=== PATIENT | female | born 1950 | race Caucasian/White ===

== ENCOUNTER 2021-03-21 05:56 | Observation (INO) ==
--- NOTE | 2021-03-03 16:33 | PAT Medication Instructions ---
Medication Instructions Date of Service March 03, 2021 Home Medications chlorthalidone 25 mg tablet 12.5 mg PO QAM cholecalciferol (vitamin D3) 50 mcg (2,000 unit) capsule 50 mcg PO QAM ibrutinib 280 mg tablet (Imbruvica) 280 mg PO QAM latanoprost 0.005 % eye drops 1 drp OPHTHALMIC (EYE) DAILY multivitamin 1 tab PO DAILY timolol 0.5 % eye drops 1 drp OPHTHALMIC (EYE) DAILY nitrofurantoin monohydrate/macrocrystals 100 mg capsule 100 mg PO HS Continue as directed latanoprost 0.005 % eye drops 1 drp OPHTHALMIC (EYE) DAILY timolol 0.5 % eye drops 1 drp OPHTHALMIC (EYE) DAILY ASK your prescriber and surgeon ibrutinib 280 mg tablet (Imbruvica) 280 mg PO QAM DO NOT take the morning of surgery chlorthalidone 25 mg tablet 12.5 mg PO QAM cholecalciferol (vitamin D3) 50 mcg (2,000 unit) capsule 50 mcg PO QAM multivitamin 1 tab PO DAILY Take evening before surgery nitrofurantoin monohydrate/macrocrystals 100 mg capsule 100 mg PO HS OTHERWISE NOTHING TO EAT OR DRINK AFTER MIDNIGHT Other Notes If you have any questions please call us at [phone] or [phone] or [phone] or [phone]
--- NOTE | 2021-03-06 15:10 | Anesthesiology Consultation ---
Date of Service March 06, 2021 Assessment & Plan (1) Pre-operative laboratory examination: Chart Review Chart Review: Acceptable Risk for Surgery (pending surgeon ordered PCP clearance and preop Covid testing ) and Patient seen in Pre Admission Testing Awaiting surgeon ordered PCP clearance (will send preop testing for PCP to review) PAT appointment 03/06/2021, patient denies any travel within the past 2 weeks. Patient is vaccinated for Covid. No known Covid infection in the past 90 days. No known Covid positive contacts or Covid related symptoms. Preop Covid testing scheduled 03/19/21= will await results. Educated on importance of self quarantining, social distancing and wearing mask in public both for the patient after Covid testing done History Surgery Operation Date: 03/21/21 11:55 Proposed Procedures p C5-C7 Anterior Cervical Discectomy and Fusion, Spinal Cord Monitoring - Nolan Powell DO Height/Weight Height: 5 ft 1 in Weight: 77.2 kg Allergies Allergy/AdvReac Type Severity Reaction Status Date / Time heparin Allergy swelling/ra Verified 03/03/21 15:48 Medications Home Medications Medication Instructions Recorded Confirmed Last Taken chlorthalidone 25 mg tablet 12.5 mg PO QAM tab 08/22/20 03/03/21 Unknown cholecalciferol (vitamin D3) 50 50 mcg PO QAM 08/22/20 03/03/21 Unknown mcg (2,000 unit) capsule ibrutinib 280 mg tablet (Imbruvica) 280 mg PO QAM 08/22/20 03/03/21 Unknown latanoprost 0.005 % eye drops 1 drp OPHTHALMIC (EYE) DAILY 08/22/20 03/03/21 Unknown multivitamin 1 tab PO DAILY 08/22/20 03/03/21 Unknown timolol 0.5 % eye drops 1 drp OPHTHALMIC (EYE) DAILY 08/22/20 03/03/21 Unknown nitrofurantoin 100 mg PO HS 03/03/21 03/03/21 Unknown monohydrate/macrocrystals 100 mg capsule Past Medical History Medical History Calculus of kidney Hx of and passed on own- no issues x one month Cervical radiculopathy Cervical spinal stenosis Glaucoma Follows routinely with eye doctor HTN (hypertension) Non-Hodgkin lymphoma 12/2015 - on Imbruvica- follows with heme/onc- stable at this time Exercise / Class Metabolic Activity II 4-5 Yardwork/Stairs/Walk up hill (one flight of stairs- no chest pain or SOB ) Past Surgical History Surgical History H/O tubal ligation History of bone marrow biopsy Hx of cataract surgery right and left Hx of hysterectomy Past Anesthesia History No Hx of Anesthesia Complications and No Family Hx of Anesthesia Complications History of PONV No Hx of PONV and No Hx of Motion Sickness Social History Smoking Status: Never smoker Do You Dip or Chew Tobacco: No Hx Alcohol Use: Yes Alcohol type: wine alcohol intake frequency: a few times a month Hx Substance Use: No substance use type: does not use Review of Systems Hx of snoring - witnessed apnea - no hx of sleep study (recommended follow up with PCP at patient discretion) Patient denies chest pain, shortness of breath, dyspnea on exertion, reflux, cough, wheezing, palpitations. No hx of seizures, stroke, MS.. No hx of blood clots or blood transfusions Physical Exam Vital Signs VITALS BP 127/72 P 88 TEMP 97.9 SP02 96% RESP 16 Constitutional no acute distress ENMT Mouth: no TMJ clicking Thyromental Distance: > or= 3.5 Finger Breadths (4.0) Mallampati Class: III Top partial plate Missing bottom molars Neck + limited neck extension (significant ) Respiratory normal respiratory effort; no respiratory distress Auscultation: lungs clear to auscultation bilaterally; no wheezes Cardiovascular Rate/Rhythm: regular rate and regular rhythm Heart Sounds: no murmur Vessels: no carotid bruit Musculoskeletal Spine: no pain with cervical ROM Extremities: extremities normal to inspection Psychiatric Orientation: alert Lab Results Anesthesia Preop Results Results Anesthesia Widget: WBC 13.67 K/uL (4.8-10.8) H 03/06/21 Hgb 13.0 g/dL (12.0-16.0) 03/06/21 Hct 38.2 % (37-47) 03/06/21 Plt 300 K/uL (130-400) 03/06/21 Na 132 mmol/L (136-145) L 03/06/21 K 3.6 mmol/L (3.5-5.1) 03/06/21 Cl 97 mmol/L (98-107) L 03/06/21 CO2 27 mmol/L (21-32) 03/06/21 BUN 12 mg/dl (7-18) 03/06/21 Creat 0.64 mg/dl (0.6-1.2) 03/06/21 Glucose Level 129 mg/dl (70-99) H 03/06/21 PT 10.1 Seconds (9.0-12.0) 03/06/21 PTT 25.6 Seconds (21.0-31.0) 03/06/21 INR 1.0 (0.9-1.1) 03/06/21 Urine Color Yellow 03/06/21 Urine Appearance Clear (Clear) 03/06/21 Urine pH 6.5 (4.5-7.5) 03/06/21 Urine Specific [place] 1.004 (1.000-1.030) 03/06/21 Urine Protein Negative (Negative) 03/06/21 Urine Glucose (UA) Negative (Negative) 03/06/21 Urine Ketones Negative (Negative) 03/06/21 Urine Blood Negative (Negative) 03/06/21 Urine Nitrite Negative (Negative) 03/06/21 Urine Bilirubin Negative (Negative) 03/06/21 Urine Urobilinogen Negative (Negative) 03/06/21 Urine Leukocyte Esterase 1+ (Negative) H 03/06/21 Urine WBC (Auto) 1-5 /hpf (0-5) 03/06/21 Urine RBC (Auto) 0-4 /hpf (0-4) 03/06/21 Urine Hyaline Casts (Auto) 0 /lpf (0-5) 03/06/21 Urine Epithelial Cells (Auto) >30 /lpf (0-5) H 03/06/21 Urine Bacteria (Auto) Negative (Negative) 03/06/21 Blood Type A Positive 03/06/21 Antibody Screen NEGATIVE 03/06/21 Lab Comments: Surgeon's office informed of leukocytosis- pt with hx of lymphoma- will forward labs to PCP for review at clearance appt Testing Electrocardiogram Date: 03/06/21 Findings: + NSR @ (85 bpm) Normal EKG per cardio. Chest X-Ray Date: 03/06/21 Findings: + NAD Cardiac silhouette is upper limits of normal in size. Mild right hemidiaphragmatic elevation. Azygos lobe and fissure. No pneumothorax, pleural effusion, airspace consolidation or overt pulmonary edema. Bones of the chest appear grossly intact. Calcified granuloma of the left lower lobe
[2021-03-21] MEDS ORDERED: ACETAMINOPHEN 500 MG TAB PO SCH (06:00)
[2021-03-21] MEDS ORDERED: LR 15ML/HR IV SCH (06:00)
[2021-03-21] MEDS ORDERED: ceFAZolin 1000MG 1,000 MG/7.5 ML SYR IV SCH (06:00)
[2021-03-21] MEDS ORDERED: GABAPENTIN 300 MG CAP PO SCH (06:00)
[2021-03-21] MEDS ORDERED: CeleBREX 200 MG CAP PO SCH (06:00)
[2021-03-21] MEDS ORDERED: SUGAMMADEX SODIUM 200 MG/2 ML VIAL IV ONE (06:40)
[2021-03-21] MEDS ORDERED: ALBUMIN HUMAN 5% 12.5 GM/250 ML VIAL IV ONE (06:40)
[2021-03-21] MEDS ORDERED: HYDROmorphone INJ 2 MG/ML SYR/VIAL ONE (06:56)
[2021-03-21] MEDS ORDERED: MIDAZOLAM HCL 1 MG/ML 2ML VIAL ONE (06:56)
--- NOTE | 2021-03-21 07:34 | History & Physical Bridge Note ---
Date of Service March 21, 2021 History & Physical Bridge Note I have examined the patient, reviewed the History & Physical and in the interval since the performance of the History & Physical I have noted the following changes of clinical significance: no changes noted
[2021-03-21] MEDS ORDERED: PROMETHAZINE HCL 6.25 MG in SODIUM CHLORIDE 0.9% 50 ML IV PRN (07:39)
[2021-03-21] MEDS ORDERED: HYDROmorphone INJ 1 MG/ML SYRINGE IV PRN ×2 (07:39→11:22)
[2021-03-21] MEDS ORDERED: ATROPINE SULFATE 0.1 MG/ML 10ML SYR IV PRN (07:39)
[2021-03-21] MEDS ORDERED: ONDANSETRON INJ 2 MG/ML 2 ML VIAL IV PRN ×2 (07:39→11:22)
--- NOTE | 2021-03-21 07:44 | History & Physical Report ---
Date of Service March 21, 2021 Assessment & Plan (1) Cervical spinal stenosis: Plan: C5-C7 anterior cervical discectomy and fusion History of Present Illness Chief Complaint: Neck and arm pain Primary Care Provider: Noel Ocampo This is a 71-year-old female presents with chronic persistent neck and arm pain. Failing course of nonoperative care she is here for surgical invention. Allergies Allergy/AdvReac Type Severity Reaction Status Date / Time heparin Allergy swelling/ra Verified 03/21/21 06:34 Home Medications Medication Instructions Recorded Confirmed Type chlorthalidone 25 mg tablet 12.5 mg PO QAM tab 08/22/20 03/21/21 History cholecalciferol (vitamin D3) 50 50 mcg PO QAM 08/22/20 03/21/21 History mcg (2,000 unit) capsule ibrutinib 280 mg tablet (Imbruvica) 280 mg PO QAM 08/22/20 03/21/21 History latanoprost 0.005 % eye drops 1 drp OPHTHALMIC (EYE) DAILY 08/22/20 03/21/21 History multivitamin 1 tab PO DAILY 08/22/20 03/21/21 History timolol 0.5 % eye drops 1 drp OPHTHALMIC (EYE) DAILY 08/22/20 03/21/21 History nitrofurantoin 100 mg PO HS 03/03/21 03/21/21 History monohydrate/macrocrystals 100 mg capsule (Macrobid) Past Med/Surg History Medical History Calculus of kidney Hx of and passed on own- no issues x one month Cervical radiculopathy Cervical spinal stenosis Glaucoma Follows routinely with eye doctor HTN (hypertension) Impaired fasting glucose Per records Non-Hodgkin lymphoma 12/2015 - on Imbruvica- follows with heme/onc- stable at this time Surgical History H/O tubal ligation History of bone marrow biopsy Hx of cataract surgery right and left Hx of hysterectomy Social History Smoking Status: Never smoker Second Hand Exposure: No; Do You Dip or Chew Tobacco: No; Tobacco Cessation Education Requested by Patient: No Hx Alcohol Use: Yes Alcohol type: wine Alcohol type Comment: 1x/week Hx Substance Use: No Preferred Language: Salvadorean Communication Ability: Effective Visual Impairment: No Limitations Hearing Ability: Normal 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
[2021-03-21] MEDS ORDERED: LIDOCAINE 2% 2 ML VIAL/AMP(20MG/ML) INFIL ONE (08:04)
[2021-03-21] MEDS ORDERED: ONDANSETRON INJ 2 MG/ML 2 ML VIAL ONE (08:04)
[2021-03-21] MEDS ORDERED: ROCURONIUM BROMIDE 10 MG/ML 5 ML VIAL IV ONE (08:04)
[2021-03-21] MEDS ORDERED: DEXAMETHASONE SOD INJ 4 MG/ML VIAL ONE (08:04)
[2021-03-21] MEDS ORDERED: PROPOFOL IV EMULSION 10 MG/ML 20 ML VIAL IV ONE (08:04)
[2021-03-21] MEDS ORDERED: FLOSEAL HEMOSTATIC MATRIX 10ML TOP ONE (08:22)
--- NOTE | 2021-03-21 09:18 | Operative Report ---
Post Operative Report Pre & Post Diagnosis Operation Date: 03/21/21 07:45 Pre-Op Diagnosis: Cervical spinal stenosis with radiculopathy Post-Op Diagnosis: Same I identified the patient and participated in the time-out.: Yes Procedure Operation Date: 03/21/21 07:45 Actual Procedures #1 anterior cervical discectomy with bilateral foraminotomies C5-C6 C6-C7. #2 anterior cervical arthrodesis C5-C6 C6-C7. #3 placement of 6 mm spiral cage filled I factor to c 5 C6 and 7 mm spiral cage filled with I factor at C6-C7. #4 application of griffin plate and screws from C5-C7. Surgeon Nolan Powell, Dust Handler Mike Abdi Estimated Blood Loss 10 Findings Consistent with Post-Op Diagnosis Specimens None Indications This is a 71-year-old female who presents above-mentioned diagnosis after failing since course of nonoperative care she is here for surgical invention. Description of Procedure Patient was met with identified informed consent obtained. Patient was then taken to the operative suite underwent ablation placed in supine position the Andriy table with head Griffith head of geography. All bony prominences well-padded eyes inspected to ensure no external pressure placed upon the. This point the anterior cervical spine was prepped and draped in a sterile fashion. With the assistance of fluoroscopy identified the C6 vertebral body and a transverse incision was placed along the right anterior aspect of the cervical spine overlying this region. Blunt dissection with the assistance of bipolar electrocautery was then performed down to and exposing the anterior cervical spine from C5-C7. Self-retaining retractors placed. Then performed a complete discectomy of C5-C6 out to the uncovertebral joints bilaterally. [place] distracting pins were utilized to assist in visualization. Removed all posterior annular fibers longitudinal ligament bilateral foraminotomies performed. Endplates burred to subcortical being bone and a 6 mm spiral cage filled with I factor tapped in position. Then proceeded to C6-C7. Again complete discectomy performed out to the uncovertebral joints bilaterally. Removed all posterior annular fibers longitudinal ligament. Bilateral foraminotomies performed. Endplates burred to subcortical being bone and a 7 mm spiral cage filled with I factor tapped in position. Distracting apparatus was removed all anterior osteophytes burred to a smooth cortical surface and a 5 complete screws applied with the assistance of fluoroscopy. The incision was then copiously irrigated explored to ensure no damage to surrounding structures remaining bleeding. 10 round FABRICIO drain inserted. The incision was then closed with 2 Vicryl in a fashion of 4 Monocryl for final skin closure. Steri-Strip sterile dressings placed. Patient waken taken to PACU stable condition. Please note spinal cord monitoring was utilized at the procedure no changes noted. Lastly Mike mckeon was present at the entire surgery involved the patient positioning complex portions of the surgery and final skin closure. I attest to the content of the Intraoperative Record and any orders documented therein. Any exceptions are noted below.
[2021-03-21] MEDS ORDERED: PHENYLEPHRINE 100MCG/ML 5ML SYR ONE (09:20)
[2021-03-21] MEDS ORDERED: bisacodyL 10 MG SUPP PR PRN (11:22)
[2021-03-21] MEDS ORDERED: LACTATED RINGER'S 1,000 ML IV SCH (11:22)
[2021-03-21] MEDS ORDERED: PROMETHAZINE HCL 12.5 MG in SODIUM CHLORIDE 0.9% 50 ML IV PRN (11:22)
[2021-03-21] MEDS ORDERED: ONDANSETRON 4 MG OD TAB PO PRN (11:22)
[2021-03-21] MEDS ORDERED: LORazepam 0.5 MG/1 ML VIAL IV PRN (11:22)
[2021-03-21] MEDS ORDERED: LORazepam 0.5 MG TAB PO PRN (11:22)
[2021-03-21] MEDS ORDERED: dexAMETHasone 8 MG in SYRINGE 0 ML IV PRN (11:22)
[2021-03-21] MEDS ORDERED: ALUMINUM/MAGNESIUM SUSP 30 ML UDC PO PRN (11:22)
[2021-03-21] MEDS ORDERED: NALOXONE HCL 0.4 MG/1 ML VIAL/CARP IV PRN (11:22)
[2021-03-21] MEDS ORDERED: MAGNESIUM HYDROXIDE SUSP 30 ML UDC PO PRN (11:22)
[2021-03-21] MEDS ORDERED: DO NOT ADMINISTER FLU VACCINE PRN (11:22)
[2021-03-21] MEDS ORDERED: METOCLOPRAMIDE HCL INJ 5 MG/ML 2 ML VIAL IV PRN (11:22)
[2021-03-21] MEDS ORDERED: DO NOT ADMINISTER PNEUMOCOCCAL VACCINE PRN (11:22)
[2021-03-21] MEDS ORDERED: ACETAMINOPHEN 500 MG TAB PO PRN (11:22)
[2021-03-21] MEDS ORDERED: traMADol HCL 50 MG TABLET PO PRN (11:22)
[2021-03-21] MEDS ORDERED: HYDROmorphone INJ 0.5 MG/0.5 ML SYR IV PRN (11:22)
[2021-03-21] MEDS ORDERED: FAMOTIDINE 20 MG TAB PO PRN (11:22)
[2021-03-21] MEDS ORDERED: diphenhydrAMINE Capsule 25 MG CAP PO PRN (11:22)
[2021-03-21] MEDS ORDERED: hydrOXYzine HCl 25 MG TAB PO PRN (11:22)
[2021-03-21] MEDS ORDERED: ACETAMINOPHEN 1,000 MG/100 ML VIAL IV PRN (11:22)
[2021-03-21] MEDS ORDERED: SOD PHOSPHATE/SOD BIPHOSPHATE ENEMA 132 ML BTL PR PRN (11:22)
[2021-03-21] MEDS ORDERED: RACEPINEPHRINE 2.25% NEBU SOLN 0.5 ML VIAL INH PRN (11:22)
--- NOTE | 2021-03-21 11:36 | Anesthesiology Progress Note ---
Date of Service March 21, 2021 Anesthesia Post Procedure Vital Signs Vital Signs: Temp Pulse Pulse Resp BP BP Pulse Ox 03/21/21 11:35 81 14 97 03/21/21 10:40 85 14 157/69 H 97 03/21/21 10:30 37.2 C 84 14 155/77 H 97 03/21/21 10:20 82 16 158/74 H 97 03/21/21 10:10 86 16 153/70 H 97 03/21/21 10:00 85 18 155/79 H 96 03/21/21 09:50 79 12 146/63 H 97 03/21/21 09:40 83 14 134/65 96 03/21/21 09:31 37.2 C 74 12 128/55 L 94 03/21/21 06:37 36.7 C 88 20 148/71 H 96 Pain Intensity Left Arm: Pain Intensity: 6 Transfer of Care Handoff Completed per policy Notes Mental Status: alert / awake / arousable Patient Amnestic to Procedure: Yes Nausea / Vomiting: adequately controlled Pain: adequately controlled Airway Patency, RR, SpO2: stable & adequate BP & HR: stable & adequate Hydration State: stable & adequate Anesthetic Complications: no major complications apparent
--- NOTE | 2021-03-21 12:33 | Hospitalist Consultation ---
Date of Consultation March 21, 2021 Assessment & Plan (1) Cervical spinal stenosis: - s/p ACDF C5-C7 on 03/21/21 - Pain management, bowel regimen and DVT ppx per the primary team - PT/OT consults, lives at home with - Follow am CBC to monitor for acute blood loss, last hgb was 13.67, monitor FABRICIO drain outs for removal per primary team - Change LR to NSS with hyponatremia (2) Non-Hodgkin lymphoma: - hx of such since 2016, currently on Imbruvica, follows with heme/onc at [facility] as outpt - Noted elevated WBC on last cbc from 03/06, check am cbc. - follow electrolytes with am labs - noted slightly hyponatremic with last labs with Na of 132, encourage diet with adequate fluid intake. Tolerated clears, advance diet per primary team (3) HTN (hypertension): - Hold chlorthalidone 25 mg tab with hyponatremia (4) Glaucoma: - Cont eye drops DVT ppx: - teds, scds CODE: Full code Dispo: From home Thank you for involving us in the care of Ms. Salazar. Please do not hesitate to call with questions or concerns. At this time medicine service will follow along. Supervising Physician Co-Signing Physician Notes And is a 71-year-old female with history of non-Hodgkin's lymphoma, recurrent urinary tract infection, hypertension and other medical problems was consulted for postop medical management after having cervical surgery for cervical spinal stenosis with radiculopathy by Dr. Powell. Patient is doing well postoperatively. Her upper extremity numbness, tingling improved. She denies any chest pain, shortness of breath, dizziness, nausea, abdominal pain. Admits to having some mild soreness at surgical site. On exam patient is moderately built and nourished, no apparent distress, normocephalic atraumatic, neck-surgical site in dressing,+ drain, neck collar, normal breath sounds, clear to auscultation, S1-S2, no murmur, no pedal edema, abdomen is soft, nontender, normal bowel sounds, alert, awake, oriented, grossly no focal deficits. Patient is consulted for postop medical management. Preoperative screening blood work suggestive of mild hyponatremia 132. Will hold chlorthalidone for now. Continue IV fluids. Recheck CBC, BMP tomorrow. Continue bowel regimen to prevent constipation. Pain control, wound care, DVT prophylaxis as per primary team. PT OT when appropriate. Plan to hold ibrutinib as recommended by her primary oncologist until next week. Monitor for postop anemia. I personally reviewed the record. Patient is interviewed and examined at bedside. Patient's care is coordinated with Lori Martinez PA-C. Please refer to the documentation above for details of patient's presentation and for discussion of other issues. History of Present Illness Reason for Consultation: Medical management Requesting Physician: Dr. Powell Attending Physician: Nolan Powell, DO History of Present Illness This is a 71 yo F with PMHx of cervical spinal stenosis, HTN, Non-hodgkin lymphoma on Imbruvica, glaucoma, who presents for an elective ACDF of C5-C7 by Dr. Powell on 03/21/21. She is doing well after surgery, complaints of fatigue. She has taken sips of ice water at bedside without any difficulty, lunch arrived during my visit with the patient. She reports feeling hungry, denies any throat swelling, difficulty swallowing, difficulty breathing, nausea, vomiting, diarrhea and her last BM was yesterday morning. She feels her left arm and hand has slight numbness and tingling in it but believes this is improved compared to prior to surgery. She denies any other neuropathy, tingling, or motor issues otherwise. Patient follows with [facility] heme-onc as outpatient for non-Hodgkin lymphoma and has been on Imbruvica x4 years. Allergies Allergy/AdvReac Type Severity Reaction Status Date / Time heparin Allergy swelling/ra Verified 03/21/21 06:34 Home Medications Medication Instructions Recorded Confirmed Type chlorthalidone 25 mg tablet 12.5 mg PO QAM tab 08/22/20 03/21/21 History cholecalciferol (vitamin D3) 50 50 mcg PO QAM 08/22/20 03/21/21 History mcg (2,000 unit) capsule ibrutinib 280 mg tablet (Imbruvica) 280 mg PO QAM 08/22/20 03/21/21 History latanoprost 0.005 % eye drops 1 drp OPHTHALMIC (EYE) DAILY 08/22/20 03/21/21 History multivitamin 1 tab PO DAILY 08/22/20 03/21/21 History timolol 0.5 % eye drops 1 drp OPHTHALMIC (EYE) DAILY 08/22/20 03/21/21 History nitrofurantoin 100 mg PO HS 03/03/21 03/21/21 History monohydrate/macrocrystals 100 mg capsule (Macrobid) oxycodone 5 mg tablet 5 mg PO Q6H PRN #20 tab 03/21/21 03/21/21 Rx tramadol 50 mg tablet 50 mg PO Q6H PRN #20 tab 03/21/21 03/21/21 Rx Patient History Medical History Calculus of kidney Hx of and passed on own- no issues x one month Cervical radiculopathy Cervical spinal stenosis Glaucoma Follows routinely with eye doctor HTN (hypertension) Impaired fasting glucose Per records Non-Hodgkin lymphoma 12/2015 - on Imbruvica- follows with heme/onc- stable at this time Surgical History H/O tubal ligation History of bone marrow biopsy Hx of cataract surgery right and left Hx of hysterectomy Social History Smoking Status: Never smoker Second Hand Exposure: No; Do You Dip or Chew Tobacco: No; Tobacco Cessation Education Requested by Patient: No Hx Alcohol Use: Yes Alcohol type: wine Alcohol type Comment: 1x/week Hx Substance Use: No Preferred Language: Kazakh Communication Ability: Effective Visual Impairment: No Limitations Hearing Ability: Normal 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 Beliefs That Will Affect Care: None marital status: Current Living Situation: Spouse Other Information That Helps Us Care for You: No Feels Safe at Home: Yes Safety Concerns: Feels Safe At This Time Assistive Devices: Glasses and Hearing Aid - Bilateral Review of Systems Review of Systems: Constitutional: No fever, sweats or chills Eyes: No diplopia, no worsening or blurred vision ENT: normal hearing, no trouble swallowing Respiratory: No cough, sputum, dyspnea at rest or on exertion Cardiovascular: No chest pain, tightness or palpitations Abdomen: No pain, nausea, vomiting, diarrhea or constipation Musculoskeletal: No joint pain, calf pain, swelling Neurologic: + Left arm/hand tingling as per HPI, otherwise no weakness, numbness/tingling, or balance problems Psychiatric: No anxiety or depression Skin: No rash or itch Physical Exam Physical Exam: General: awake, alert, no apparent distress, obese with BMI of 31.8 Head: Normocephalic, atraumatic ENT: PERRL, EOMI, no pharyngeal exudate, mucous membranes moist, Neck brace in place, dressing over anterior neck c/d/i, FABRICIO drain in place with minimal bloody outs. Chest: Clear to auscultation, on room air, no adventitious breath sounds Cardiac: Regular rate and rhythm, no murmur, no JVD, normal peripheral pulses, good capillary refill Abdominal: NABS x 4 quadrants, soft, nondistended, nontender to palpation, no rebound or guarding Extremities: Normal inspection, no peripheral edema or erythema, calfs nontender to palpation Psych: Normal mood and affect Neuro: AAO x 3, strength intact bilaterally and rated 5/5, no motor deficits, speech is clear, no peripheral sensory deficits Results & Data Results & Data ([facility]) Vital Signs (Past 12 Hours) Vital Signs Temp Pulse Pulse Pulse Resp BP BP 03/21/21 11:35 36.5 C 81 90 16 150/76 H 03/21/21 10:40 85 14 157/69 H 03/21/21 10:30 37.2 C 84 14 155/77 H 03/21/21 10:20 82 16 158/74 H 03/21/21 10:10 86 16 153/70 H 03/21/21 10:00 85 18 155/79 H 03/21/21 09:50 79 12 146/63 H 03/21/21 09:40 83 14 134/65 03/21/21 09:31 37.2 C 74 12 128/55 L 03/21/21 06:37 36.7 C 88 20 148/71 H Pulse Ox 03/21/21 11:35 96 03/21/21 10:40 97 03/21/21 10:30 97 03/21/21 10:20 97 03/21/21 10:10 97 03/21/21 10:00 96 03/21/21 09:50 97 03/21/21 09:40 96 03/21/21 09:31 94 03/21/21 06:37 96
[2021-03-21] MEDS ORDERED: SODIUM CHLORIDE 0.9% 1000ML 1,000 ML IV SCH (13:15)
[2021-03-21] MEDS: ceFAZolin 2000MG 2,000 MG/15 ML SYR IV SCH (17:31)
[2021-03-21] MEDS ORDERED: COUGH DROP (SUGAR FREE) LOZ 24 LOZ/1 BOX BUCCAL ONE (20:59)
[2021-03-21] MEDS ORDERED: NITROFURANTOIN MONOHYDRATE 100 MG CAP PO SCH (21:00)
[2021-03-21] MEDS ORDERED: DOCUSATE SODIUM/SENNA 50/8.6MG TAB PO SCH (21:00)
[2021-03-21] MEDS: oxyCODONE HCL IR 5 MG TAB (IMMEDIATE RELEASE) PO PRN (21:40)
--- NOTE | 2021-03-22 00:17 | Fluoroscopy Report ---
INTRAOPERATIVE RADIOGRAPHS CLINICAL HISTORY: C5-C7 spinal fusion. Fluoroscopy time: 14 seconds. FINDINGS: 2 spot fluoroscopic views of the cervical spine are presented. There has been discectomy at C5-C6 and C6-C7 with anterior fusion from C5-C7. The orthopedic hardware appears intact. An endotrac heal tube is in place. A surgical drain is noted. IMPRESSION: Intraoperative cervical spine fusion images as above. Electronically signed by: Shabbir Headley M.D. 03/22/2021 12:16 AM
[2021-03-22] MEDS: ceFAZolin 2000MG 2,000 MG/15 ML SYR IV SCH (01:01)
[2021-03-22 05:36] LABS: Hematocrit (blood only) 35.2 % (37-47); Mean Corpuscular Hemoglobin 29.9 pg (25-34); Mean Corpuscular Hgb Conc 34.1 g/dL (32-36); Mean Corpuscular Volume 87.8 fL (80-100); Mean Platelet Volume 10.3 fL (7.4-10.4); Platelet Count 327 K/uL (130-400); RDW Coefficient of Variation 12.8 % (11.5-14.5); RDW Standard Deviation 41.3 fL (36.4-46.3); Red Blood Count 4.01 M/uL (4.2-5.4); White Blood Count 13.29 K/uL (4.8-10.8)
[2021-03-22 05:53] LABS: Albumin Level 3.1 gm/dl (3.4-5.0); Calcium 8.5 mg/dl (8.5-10.1); Creatinine Clr Calc Pharmacy 87.1 ml/min; Est GFR (African American) 109.6 ml/min; Est GFR (Non-African American) 94.6 ml/min; Magnesium 1.8 mg/dl (1.8-2.4); Potassium 3.7 mmol/L (3.5-5.1)
[2021-03-22 05:56] LABS: Albumin Globulin Ratio 0.9 (0.9-2); Bilirubin,Total 0.5 mg/dl (0.2-1); Globulin 3.5 gm/dl (2.5-4.0); Total Protein 6.6 gm/dl (6.4-8.2)
[2021-03-22] MEDS ORDERED: POLYETHYLENE (MIRALAX) 17 GM PACK PO SCH (06:00)
--- NOTE | 2021-03-22 07:17 | Hospitalist Progress Note ---
Date of Service March 22, 2021 Assessment & Plan (1) Cervical spinal stenosis: Plan: - s/p ACDF C5-C7 on 03/21/21 - Pain management, bowel regimen and DVT ppx per the primary team - PT/OT consults, lives at home with - Follow am CBC to monitor for acute blood loss, last hgb was 13.67 (now post-op slightly down to 12, which is expected) - monitor FABRICIO drain outs for removal per primary team - Changed LR to NSS with hyponatremia , can stop IVF per primary team, Na now 138 (2) Non-Hodgkin lymphoma: Plan: - hx of such since 2016, currently on Imbruvica, follows with heme/onc at [facility] as outpt - Noted elevated WBC on last cbc from 03/06, check am cbc. Hyponatremia - noted slightly hyponatremic with last labs with Na of 132 - encouraged diet with adequate fluid intake. Tolerated clears, advance diet per primary team - Na now improved to 138 (3) HTN (hypertension): Plan: - Hold chlorthalidone 25 mg tab for now, resume at DC (4) Glaucoma: Plan: - Cont eye drops DVT ppx: - teds, scds CODE: Full code Dispo: Likely plan to return home today Thank you for involving us in the care of Ms. Salazar. Please do not hesitate to call with questions or concerns. At this time medicine service will follow along. Admission and Anticipated Discharge Date Admission Date: March 21, 2021 Subjective Patient seen in follow-up of surgery for cervical spinal stenosis Patient is laying in bed in no acute distress, cervical collar applied Denies any fevers, chills, chest pain, shortness of breath, abdominal, nausea or vomiting Reports much improved symptoms of her left upper extremity Ambulates to bathroom without difficulty No numbness tingling in any extremity No dizziness or lightheadedness Review of Systems Review of Systems: All systems reviewed & are unremarkable except as noted in Subjective Physical Exam Physical Exam: General: awake, alert, no apparent distress Head: Normocephalic, atraumatic ENT: PERRL, EOMI, Neck brace in place, dressing over anterior neck c/d/i, FABRICIO drain in place with minimal bloody outs. Chest: Clear to auscultation, on room air, no adventitious breath sounds Cardiac: Regular rate and rhythm, no murmur Abdominal: NABS x 4 quadrants, soft, nondistended, nontender to palpation, no rebound or guarding Extremities: Normal inspection, no peripheral edema or erythema, calves nontender to palpation Psych: Normal mood and affect Neuro: AAO x 3, strength intact bilaterally and rated 5/5, no motor deficits, speech is clear, no peripheral sensory deficits Results & Data Results & Data ([facility]) Vital Signs (Past 12 Hours) Vital Signs Temp Pulse Pulse Resp BP BP Pulse Ox 03/22/21 07:04 36.5 C 78 16 134/74 98 03/22/21 05:16 36.6 C 84 16 145/74 H 98 03/22/21 03:15 36.5 C 79 18 148/82 H 98 03/22/21 02:28 80 16 97 03/22/21 01:11 36.6 C 79 16 145/79 H 97 03/21/21 23:15 36.6 C 88 18 133/77 96 03/21/21 22:04 89 14 98 03/21/21 21:00 36.9 C 76 20 146/74 H 96 Laboratory Results 03/22/21 03/22/21 03/21/21 Range/Units 05:09 05:09 Unknown WBC 13.29 H (4.8-10.8) K/uL RBC 4.01 L (4.2-5.4) M/uL Hgb 12.0 (12.0-16.0) g/dL Hct 35.2 L (37-47) % MCV 87.8 (80-100) fL MCH 29.9 (25-34) pg MCHC 34.1 (32-36) g/dL RDW Std Deviation 41.3 (36.4-46.3) fL RDW Coeff of Luc 12.8 (11.5-14.5) % Plt Count 327 (130-400) K/uL MPV 10.3 (7.4-10.4) fL Sodium 138 (136-145) mmol/L Potassium 3.7 (3.5-5.1) mmol/L Chloride 105 (98-107) mmol/L Carbon Dioxide 31 (21-32) mmol/L Anion Gap 2.0 L (3-11) BUN 5 L (7-18) mg/dl Creatinine 0.57 L (0.6-1.2) mg/dl Est Cr Clr Drug Dosing 87.1 ml/min Est GFR ( Amer) 109.6 ml/min Est GFR (Non-Af Amer) 94.6 ml/min BUN/Creatinine Ratio 9.0 L (10-20) Glucose 125 H (70-99) mg/dl Calcium 8.5 (8.5-10.1) mg/dl Magnesium 1.8 (1.8-2.4) mg/dl Total Bilirubin 0.5 (0.2-1) mg/dl AST 16 (15-37) U/L ALT 25 (12-78) U/L Alkaline Phosphatase 78 (45-117) U/L Total Protein 6.6 (6.4-8.2) gm/dl Albumin 3.1 L (3.4-5.0) gm/dl Globulin 3.5 (2.5-4.0) gm/dl Albumin/Globulin Ratio 0.9 (0.9-2) SARS-CoV-2 (PCR) NEGATIVE (Negative) Blood Type Antibody Screen 03/21/21 Range/Units 06:36 WBC (4.8-10.8) K/uL RBC (4.2-5.4) M/uL Hgb (12.0-16.0) g/dL Hct (37-47) % MCV (80-100) fL MCH (25-34) pg MCHC (32-36) g/dL RDW Std Deviation (36.4-46.3) fL RDW Coeff of Luc (11.5-14.5) % Plt Count (130-400) K/uL MPV (7.4-10.4) fL Sodium (136-145) mmol/L Potassium (3.5-5.1) mmol/L Chloride (98-107) mmol/L Carbon Dioxide (21-32) mmol/L Anion Gap (3-11) BUN (7-18) mg/dl Creatinine (0.6-1.2) mg/dl Est Cr Clr Drug Dosing ml/min Est GFR ( Amer) ml/min Est GFR (Non-Af Amer) ml/min BUN/Creatinine Ratio (10-20) Glucose (70-99) mg/dl Calcium (8.5-10.1) mg/dl Magnesium (1.8-2.4) mg/dl Total Bilirubin (0.2-1) mg/dl AST (15-37) U/L ALT (12-78) U/L Alkaline Phosphatase (45-117) U/L Total Protein (6.4-8.2) gm/dl Albumin (3.4-5.0) gm/dl Globulin (2.5-4.0) gm/dl Albumin/Globulin Ratio (0.9-2) SARS-CoV-2 (PCR) (Negative) Blood Type A Positive Antibody Screen NEGATIVE Medications Administered Current Inpatient Medications Acetaminophen (Acetaminophen 500 Mg Tab) 1,000 mg PO Q8H PRN PRN Reason: MILD Pain Scale 1,2,3 & Pre PT Stop: 04/20/21 11:21 Al Hydrox/Mg Hydrox/Simethicone (Aluminum/Magnesium Susp 30 Ml Udc) 30 ml PO Q6H PRN PRN Reason: Dyspepsia Stop: 04/20/21 11:21 Bisacodyl (Bisacodyl 10 Mg Supp) 10 mg ME DAILY PRN PRN Reason: Constipation Stop: 04/20/21 11:21 Chlorthalidone (Chlorthalidone 25 Mg Tab) 12.5 mg PO QAM ARNOLDO Stop: 04/21/21 08:59 Diphenhydramine HCl (Diphenhydramine Capsule 25 Mg Cap) 25 mg PO Q6H PRN PRN Reason: Allergic Rhinitis/Insomnia Stop: 04/20/21 11:21 Epinephrine (Racepinephrine 2.25% Nebu Soln 0.5 Ml Vial) 0.5 ml INH NOW PRN PRN Reason: If stridor present Famotidine (Famotidine 20 Mg Tab) 20 mg PO Q12H PRN PRN Reason: Dyspepsia Stop: 04/20/21 11:21 Hydromorphone HCl (Hydromorphone Inj 0.5 Mg/0.5 Ml Syr) 0.5 mg IV Q3H PRN PRN Reason: MOD pain (scale 4-6) & Pre PT Stop: 04/04/21 11:21 Hydromorphone HCl (Hydromorphone Inj 1 Mg/Ml Syringe) 1 mg IV Q3H PRN PRN Reason: severe pain (scale 7-10) Stop: 04/04/21 11:21 Hydroxyzine HCl (Hydroxyzine Hcl 25 Mg Tab) 25 mg PO Q8H PRN PRN Reason: Anxiety Stop: 04/20/21 11:21 Acetaminophen (Ofirmev) 1,000 mg in 100 mls @ 400 mls/hr IV Q8H PRN PRN Reason: Pain Rating 1-3 & Pre PT Stop: 03/24/21 11:21 Dexamethasone 8 mg/ Syringe 2 mls @ 1 mls/min IV NOW PRN PRN Reason: If stridor present Promethazine HCl 12.5 mg/ (Sodium Chloride) 50.5 mls @ 202 mls/hr IV Q6H PRN PRN Reason: Nausea &/or Vomiting Stop: 04/20/21 11:21 Lorazepam (Ativan) 0.5 mg in 1 mls @ 1 mls/min IV Q8H PRN PRN Reason: Sedation/Anxiety Stop: 04/20/21 11:21 Influenza Virus Vaccine Quadrival (Do Not Administer Flu Vaccine) 1 ea N/A PRN PRN PRN Reason: Notification Stop: 04/20/21 11:21 Latanoprost (Latanoprost 0.005% Op Soln 2.5 Ml Btl) 1 drops OP DAILY ARNOLDO Stop: 04/21/21 08:59 Lorazepam (Lorazepam 0.5 Mg Tab) 0.5 mg PO Q8H PRN PRN Reason: sedation/anxiety Stop: 04/20/21 11:21 Magnesium Hydroxide (Magnesium Hydroxide Susp 30 Ml Udc) 30 ml PO Q24H PRN PRN Reason: Constipation Stop: 04/20/21 11:21 Metoclopramide HCl (Metoclopramide Hcl Inj 5 Mg/Ml 2 Ml Vial) 10 mg IV Q6H PRN PRN Reason: Nausea &/or Vomiting Stop: 04/20/21 11:21 Miscellaneous (Ibrutinib: Order Awaiting Action) 1 ea N/A QS ARNOLDO Stop: 04/20/21 15:59 Multivitamins (Multivitamin Tab) 1 tab PO DAILY ARNOLDO Stop: 04/21/21 08:59 Naloxone HCl (Naloxone Hcl 0.4 Mg/1 Ml Vial/Carp) 0.1 mg IV Q5M PRN PRN Reason: Oversedation/respiratory dep Stop: 04/20/21 11:21 Nitrofurantoin Macrocrystals (Nitrofurantoin Monohydrate 100 Mg Cap) 100 mg PO HS [facility] Stop: 04/20/21 20:59 Last Admin: 03/21/21 20:16 Dose: 100 mg Documented by: Ondansetron HCl (Ondansetron Inj 2 Mg/Ml 2 Ml Vial) 4 mg IV Q6H PRN PRN Reason: Nausea &/or Vomiting Stop: 04/20/21 11:21 Ondansetron HCl (Ondansetron 4 Mg Od Tab) 4 mg PO Q6H PRN PRN Reason: Nausea Stop: 04/20/21 11:21 Oxycodone HCl (Oxycodone Hcl Ir 5 Mg Tab (Immediate Release)) 5 - 10 mg PO Q4H PRN PRN Reason: Pain & Pre PT Stop: 04/04/21 11:21 Last Admin: 03/22/21 07:38 Dose: 5 mg Documented by: Pneumococcal Polyvalent Vaccine (Do Not Administer Pneumococcal Vaccine) 1 ea N/A PRN PRN PRN Reason: Notification Stop: 04/20/21 11:21 Polyethylene Glycol (Polyethylene (Miralax) 17 Gm Pack) 17 gm PO Q6 [facility] Stop: 04/21/21 05:59 Last Admin: 03/22/21 05:19 Dose: Not Given Documented by: Senna/Docusate Sodium (Docusate Sodium/Senna 50/8.6mg Tab) 2 tab PO HS [facility] Stop: 04/20/21 20:59 Last Admin: 03/21/21 20:19 Dose: Not Given Documented by: Sodium Biphosphate/Sodium Phosphate (Sod Phosphate/Sod Biphosphate Enema 132 Ml Btl) 132 ml ME ONE PRN PRN Reason: Constipation Stop: 04/20/21 11:21 Timolol Maleate (Timolol Maleate 0.5% Op Soln 5 Ml Btl) 1 drops OP DAILY [facility] Stop: 04/21/21 08:59 Tramadol HCl (Tramadol Hcl 50 Mg Tablet) 50 - 100 mg PO Q4H PRN PRN Reason: Moderate-Severe pain & Pre PT Stop: 04/20/21 11:21 Vitamin D (Cholecalciferol 1,000 Units 25 Mcg Tab) 2,000 units PO QAM [facility] Stop: 04/21/21 08:59
[2021-03-22] MEDS: oxyCODONE HCL IR 5 MG TAB (IMMEDIATE RELEASE) PO PRN ×2 (07:38→08:33)
--- NOTE | 2021-03-22 08:04 | Discharge Summary ---
Date of Service March 22, 2021 Admission HPI Per Admitting Provider This is a 71-year-old female presents with chronic persistent neck and arm pain. Failing course of nonoperative care she is here for surgical invention. Admission Exam (Per Admitting) Constitutional WD/WN, vitals as above Eyes normal visual kinney by confrontation ENMT external ear and nose normal, oropharynx normal Neck normal visual inspection Respiratory normal respiratory effort Cardiovascular Extremities: normal capillary refill Gastrointestinal (Abdomen) Inspection/Auscultation: abdomen normal to inspection Musculoskeletal Extremities: extremities normal to inspection and strength 5/5 throughout Skin no rashes, warm and dry Neurologic normal touch/pain/proprioception and moves all extremities Psychiatric A+Ox3, euthymic affect Discharge Data Consultations 03/21/21 11:22 Consult Hospitalist Routine Procedures Performed Operation Date: 03/21/21 07:45 Actual Procedures p C5-C7 Anterior Cervical Discectomy and Fusion, Spinal Cord Monitoring(Not Applicable) - Nolan Powell, DO Hospital Course (1) Cervical spinal stenosis: Patient has had an uncomplicated postoperative course status post ACDF C5- 6, C6-[address] Powell. She is being discharged home on postoperative day 1. Arm symptoms greatly improved compared to preoperative status. FABRICIO drain output last shift is 10 cc. H&H is morning are 12.0 and 35.2 respectively. She is up and ambulating around her room and voiding without issue. Discharge Instructions ACTIVITY RECOMMENDATIONS: SELF CARE INSTRUCTIONS AFTER CERVICAL FUSIONS 1. No smoking. Smoking drastically decreases the chance of a solid fusion. 2. No bending, lifting more than 5 pounds, or twisting (roll like a log when turning in bed). 3. You may shower 3 days after surgery. Thoroughly dry wound. Do not soak in the tub. 4. Cervical collar: Must be worn at all times including sleeping. You may remove the brace only to bath, eat and if you are sitting in a recliner. 5. Please walk as much as you can for exercise. Gradually increase the distance that you walk as your endurance increases. SPECIAL CARE INSTRUCTIONS: VERY IMPORTANT TO READ AND REVIEW A. Do not take any anti-inflammatory medications (i.e. Indocin, Advil, Aspirin, Naprosyn, Aleve, Motrin, etc.) as these may inhibit the chance of a solid fusion. Tylenol is okay to take. B. Your surgical incision has been closed with a cosmetic suture under the skin that will dissolve in about 6 weeks. In 14 days, you can use a pair of clean scissors and cut the suture that is left outside of the skin at the ends of your incision. C. Complications are uncommon, but please contact us if you have any signs or symptoms of: 1. wound infection (fever higher than 102.5 degrees F, redness, separation of wound, drainage, or increasing pain from the incision) 2. blood clots in legs (pain, swelling, redness and warmth in legs) 3. urinary tract infection (fever higher than 102.5 degrees, burning upon urination or increased frequency of urination) 4. nerve problems (inability to walk on your toes or heels, numbness, loss of bowel or bladder control) 5. any other symptoms that concern you. D. Please call the office at if you have any concerns or questions about your operation or recovery. MANAGING PAIN AFTER SPINAL SURGERY 1. Narcotic medication is intended for short-term use and will be provided for surgical pain. Surgical pain usually lasts for a period of 4-6 weeks. Narcotic medication includes Percocet, Vicodin, Darvocet, Tylenol #3 or Lortab. 2. Longer-term pain is more appropriately treated with non-narcotic medication such as Tylenol ES. 3. Muscle spasm is not appropriately treated with narcotics. Muscle relaxers such as Soma, Flexeril or Skelaxin can be used along with Tylenol ES. 4. Remember that we all live with some "aches and pains". This is not unusual or uncommon after an injury or as we get older. 5. We will provide appropriate medication within the normal guidelines of their prescribed use. We will also be very cautious and aware of potential abuse and extended duration of patients' medication needs. 6. Please allow 2-3 days to process refills. Prescriptions will not be mailed but must be picked up at the office. FOLLOW UP VISIT: Keep your scheduled follow-up appointment. Any questions, please call the office at . Supervising Physician Co-Signing Physician Notes Dr. Nolan Powell
[2021-03-22] MEDS ORDERED: TIMOLOL MALEATE 0.5% OP SOLN 5 ML BTL OP SCH (09:00)
[2021-03-22] MEDS ORDERED: CHOLECALCIFEROL 1,000 UNITS 25 MCG TAB PO SCH (09:00)
[2021-03-22] MEDS ORDERED: LATANOPROST 0.005% OP SOLN 2.5 ML BTL OP SCH (09:00)
[2021-03-22] MEDS ORDERED: CHLORTHALIDONE 25 MG TAB PO SCH (09:00)
[2021-03-22] MEDS ORDERED: MULTIVITAMIN TAB PO SCH (09:00)
== END 2021-03-22 11:05 | disposition home or self-care (01) ==
LOC: 3E 05:56 → ASU 05:56 → OBSVTOIN 09:20 → INTOOBSV 09:20